=== PATIENT | male | born 1945 | race Caucasian/White ===

== ENCOUNTER → 2016-08-22 | Outpatient (CLI) | payer MEDICARE ==
[~2016-08-22] MED LIST: REGADENOSON 0.4 MG/5 ML SYRINGE IV ONE
[2016-08-22 07:11] LABS: Blood Urea Nitrogen 12 mg/dL (9-20); Non-African American GFR(MDRD) >60 (>60 ml/min/1.73 sqM)
--- NOTE | 2016-08-22 08:31 | CT ---
EXAMINATION TYPE: CT angio abdomen DATE OF EXAM: 08/22/2016 7:39 AM COMPARISON: NONE HISTORY: AAA CT DLP: 1059 mGycm CONTRAST: CTA abdominal aorta with 3-D reconstruction is performed without and with IV Contrast, patient inject ed with 100 ml mL of Omnipaque 300. Contrast CTA of the abdominal aorta was performed from the lung bases through the base of the pelvis . 3-D reconstruction imaging obtained at a separate workstation. ABDOMENAL AORTA: There is an infrarenal abdominal aortic aneurysm with neck of approximately 1.3 cm. Maximal AP dimension is approximately 6.3 cm with extensive mural thrombus. Aneurysm extends into the right common iliac artery which measures 2.5 cm. The left common iliac artery is ectatic however non aneurysmal. No evidence for dissection or complicating factor. No evidence of rupture at this time. [place] vessels appear to perfuse normally. LIVER/GB- No significant abnormality is seen. Small cyst at the dome of the liver measuring less than 1 cm. PANCREAS- No significant abnormality is seen. SPLEEN- No significant abnormality is seen. ADRENALS- No significant abnormality is seen. KIDNEYS/BLADDER-5.1 cm simple cyst lower pole right kidney. BOWEL-sigmoid diverticulosis without diverticulitis. GENITAL ORGANS: No gross abnormality seen. LYMPH NODES- No greater than 1cm abdominal or pelvic lymph nodes areappreciated. OSSEOUS STRUCTURES- No significant abnormality is seen. OTHER- No significant abnormality is seen. IMPRESSION- 1. Infrarenal abdominal aortic aneurysm. Aneurysm of the right common iliac artery. No complicating f actors identified.
--- NOTE | 2016-08-22 10:51 | ECHOF ---
Referral Reason:AAA I71.4 MEASUREMENTS -------- HEIGHT: 162.6 cm WEIGHT: 60.8 kg BP: IVSd: 1.2 cm (0.6 - 1.1) LVIDd: 4.1 cm (3.9 - 5.3) LVPWd: 1.6 cm (0.6 - 1.1) IVSs: 2.0 cm LVIDs: 3.2 cm LVPWs: 1.7 cm Ao Diam: 3.7 cm (2.0 - 3.7) AV Cusp: 2.2 cm (1.5 - 2.6) LA Diam: 2.7 cm (2.7 - 3.8) MV EXCURSION: 13.189 mm (> 18.000) MV EF SLOPE: 38 mm/s (70 - 150) EPSS: 1.4 cm MV E Armando: 1.21 m/s MV DecT: 128 ms MV A Armando: 0.43 m/s MV E/A Ratio: 2.81 RAP: 5.00 mmHg RVSP: 16.32 mmHg FINDINGS -------- Sinus rhythm. This was a technically good study. There is moderate concentric left ventricular hypertrophy. Overall left ventricular systolic function is low-normal with, an EF between 50 - 55 %. Mid to basal inferiorlateral is hypokinetic The right ventricle is normal in size and function. The left atrium is normal in size. The right atrium is normal in size. Aortic valve is trileaflet and is mildly thickened. The mitral valve leaflets are mildly thickened. Mild mitral regurgitation is present. Mild tricuspid regurgitation present. The right ventricular systolic pressure, as measured by Doppler, is 16.32mmHg. The pulmonic valve is normal. The aortic root size is normal. The pericardium is normal. CONCLUSIONS -------- 1. Sinus rhythm. 2. The mitral valve leaflets are mildly thickened. 3. Mild mitral regurgitation is present. 4. Mild tricuspid regurgitation present. 5. The right ventricular systolic pressure, as measured by Doppler, is 16.32mmHg. 6. The pulmonic valve is normal. 7. The aortic root size is normal. 8. The pericardium is normal. 9. This was a technically good study. 10. There is moderate concentric left ventricular hypertrophy. 11. Overall left ventricular systolic function is low-normal with, an EF between 50 - 55 %. 12. Mid to basal inferiorlateral is hypokinetic 13. The right ventricle is normal in size and function. 14. The left atrium is normal in size. 15. The right atrium is normal in size. 16. Aortic valve is trileaflet and is mildly thickened. PREDATORY ANIMAL TRAPPER: Dominique Alvarez RDCS
--- NOTE | 2016-08-22 12:04 | EST ---
DATE OF SERVICE: 08/22/16. AGE: 71Y SEX: M HT: 5'4" WT: 134 lbs. Protocol Chetan: Other: X Stage: Dur. of Exercise: *Heart Rate Blood Pressure *Rest: 71 Rest: 134/66 * *Max. Achieved: 103 Maximum BP: 153/68 85% PMHR: 100% PMHR: *METS: INDICATIONS: Shortness of breath. MEDICATIONS: Mr. casillas is a 71-year-old gentleman with history of diabetes, hypercholesterolemia and COPD, being evaluated for symptoms of shortness of breath. Stress data: Baseline EKG showed sinus rhythm with evidence of incomplete right bundle branch block pattern. A standard dose of Lexiscan was infused. EKGs did not reveal any significant changes from the baseline. FINAL IMPRESSION: 1. Negative Lexiscan stress test. 2. Report on the nuclear images to be given by the radiologist.
--- NOTE | 2016-08-22 14:06 | NM ---
EXAMINATION TYPE: NM stress lexiscan cardiolite DATE OF EXAM: 08/22/2016 11:13 AM COMPARISON: NONE HISTORY: 71-year-old male AAA TECHNIQUE: After the intravenous administration of 11 mCi Tc 99m Sestamibi - Cardiolite resting SPEC T images acquired 45 minutes post injection. The patient received 0.4mg Lexiscan, 27.5 mCi Tc 99m Sestamibi - Stress images obtained [address] injection FINDINGS: Review of stress and rest SPECT images demonstrates large fixed perfusion defect along the inferior w all. However, there is prominent adjacent GI activity and some of the perfusion defect appears larger on the rest images. Gated analysis shows no perfusion or augmentation along the inferior wall. Estim ated left ventricular ejection fraction of 64 %. TID is calculated at 0.97, within normal limits. IMPRESSION: 1. There appears to be a large fixed perfusion defect along the inferior wall. Correlate for history of prior inferior wall infarct. 2. No areas of reversible ischemia seen.
== END | disposition home or self-care (01) ==
LOC: RADCTMAIN 06:30
PROVIDERS: ATTEND Thoracic Surgery (Cardiothoracic Vascular Surgery)
DX: I71.4 Abdominal aortic aneurysm, without rupture (principal); I72.3 Aneurysm of iliac artery
CPT/HCPCS: 93017; 93306; 82565; 84520; 74175; 36415; 78452; A9500; Q9967; J2785

== ENCOUNTER 2016-10-19 15:58 | Emergency (ER) | payer MEDICARE ==
--- NOTE | 2016-10-19 16:34 | ED ---
General Adult HPI - General Chief complaint: Recheck/Abnormal Lab/Rx Stated complaint: SOB-Post Op/Incision Leaking Time Seen by Provider: 10/19/16 16:05 Source: patient, RN notes reviewed Mode of arrival: ambulatory Limitations: no limitations - History of Present Illness Initial comments: This is a 71-year-old male who recently had abdominal aortic aneurysm repair he was discharged from [facility] yesterday. According to the patient he comes in today because he is having decreased urine output as well as a lot of swelling to the legs and seepage from the groin incision. Patient denies any fever chills patient denies any increase in abdominal pain other than the normal incisional pain. Patient denies any headache patient denies numbness weakness per patient denies chest pain difficulty breathing or shortness of breath per patient denies any fever chills. Patient denies any dysuria. - Related Data Home Medications Medication Instructions Recorded Confirmed ALPRAZolam [Xanax] 0.25 mg PO BID PRN 10/19/16 10/19/16 Aspirin EC [Ecotrin Low Dose] 81 mg PO DAILY 10/19/16 10/19/16 Cholecalciferol [Vitamin D3] 1,000 unit PO DAILY 10/19/16 10/19/16 Cyanocobalamin [Vitamin B-12] 500 mcg PO DAILY 10/19/16 10/19/16 HYDROcodone/APAP 5-325MG [Porter 1 tab PO Q4HR PRN 10/19/16 10/19/16 5-325] Lovastatin [Mevacor] 40 mg PO DAILY 10/19/16 10/19/16 Omeprazole [PriLOSEC] 20 mg PO DAILY 10/19/16 10/19/16 metFORMIN HCL [Glucophage] 500 mg PO BID 10/19/16 10/19/16 Previous Rx's Medication Instructions Recorded Furosemide [Lasix] 20 mg PO BID #10 tab 10/19/16 Potassium Chloride ER [K-Dur 20] 20 meq PO DAILY #12 tab 10/19/16 Allergies Allergy/AdvReac Type Severity Reaction Status Date / Time No Known Allergies Allergy Verified 10/19/16 16:37 Review of Systems ROS Statement: Those systems with pertinent positive or pertinent negative responses have been documented in the HPI. ROS Other: All systems not noted in ROS Statement are negative. Past Medical History Past Medical History: Deep Vein Thrombosis (DVT) History of Any Multi-Drug Resistant Organisms: None Reported Additional Past Surgical History / Comment(s): blood clot removal Past Psychological History: No Psychological Hx Reported Smoking Status: Former smoker Past Alcohol Use History: None Reported Past Drug Use History: None Reported General Exam - General Exam Comments Initial Comments: GENERAL: Patient is well-developed and well-nourished. Patient is nontoxic and well- hydrated and is in mild distress. ENT: Neck is soft and supple. No significant lymphadenopathy is noted. Oropharynx is clear. Moist mucous membranes. Neck has full range of motion without eliciting any pain. EYES: The sclera were anicteric and conjunctiva were pink and moist. Extraocular movements were intact and pupils were equal round and reactive to light. Eyelids were unremarkable. PULMONARY: Unlabored respirations. Good breath sounds bilaterally. No audible rales rhonchi or wheezing was noted. CARDIOVASCULAR: There is a regular rate and rhythm without any murmurs gallops or rubs. ABDOMEN: Soft and nontender with normal bowel sounds. Patient has a large incision on the abdomen that appears to be healing well no signs of infection SKIN: Abdominal incision in right groin incision neither incision looks infected. NEUROLOGIC: Patient is alert and oriented x3. Cranial nerves II through XII are grossly intact. Motor and sensory are also intact. Normal speech, volume and content. Symmetrical smile. MUSCULOSKELETAL: Normal extremities with adequate strength and full range of motion. 2+ edema bilaterally patient has good cap refills bilaterally LYMPHATICS: No significant lymphadenopathy is noted PSYCHIATRIC: Normal psychiatric evaluation. Limitations: no limitations Course Vital Signs 10/19/16 10/19/16 10/19/16 16:02 17:47 18:06 Temperature 97.8 F 97.9 F Pulse Rate 84 80 79 Respiratory 20 18 20 Rate Blood Pressure 140/68 102/52 126/63 O2 Sat by Pulse 98 94 L 93 L Oximetry 10/19/16 18:08 Temperature Pulse Rate 80 Respiratory 20 Rate Blood Pressure 126/62 O2 Sat by Pulse 94 L Oximetry Medical Decision Making - Medical Decision Making Chest x-ray shows small pleural effusions I spoke with the vascular surgeon he wanted the patient started on Lasix and potassium and will follow-up the patient on Monday. - Lab Data Result diagrams: 10/19/16 16:55 10/19/16 16:55 Lab Results 10/19/16 10/19/16 10/19/16 Range/Units 16:55 16:55 16:55 WBC 5.6 (3.8-10.6) k/uL RBC 2.94 L (4.30-5.90) m/uL Hgb 9.1 L (13.0-17.5) gm/dL Hct 26.6 L (39.0-53.0) % MCV 90.7 (80.0-100.0) fL MCH 30.9 (25.0-35.0) pg MCHC 34.1 (31.0-37.0) g/dL RDW 14.4 (11.5-15.5) % Plt Count 288 (150-450) k/uL Neutrophils % 71 % Lymphocytes % 16 % Monocytes % 5 % Eosinophils % 5 % Basophils % 0 % Neutrophils # 4.0 (1.3-7.7) k/uL Lymphocytes # 0.9 L (1.0-4.8) k/uL Monocytes # 0.3 (0-1.0) k/uL Eosinophils # 0.3 (0-0.7) k/uL Basophils # 0.0 (0-0.2) k/uL Sodium 141 (137-145) mmol/L Potassium 3.2 L (3.5-5.1) mmol/L Chloride 107 (98-107) mmol/L Carbon Dioxide 25 (22-30) mmol/L Anion Gap 9 mmol/L BUN 10 (9-20) mg/dL Creatinine 0.73 (0.66-1.25) mg/dL Est GFR (MDRD) Af Amer >60 (>60 ml/min/1.73 sqM) Est GFR (MDRD) Non-Af >60 (>60 ml/min/1.73 sqM) Glucose 154 H (74-99) mg/dL Calcium 8.0 L (8.4-10.2) mg/dL Total Bilirubin 0.7 (0.2-1.3) mg/dL AST 45 (17-59) U/L ALT 31 (21-72) U/L Alkaline Phosphatase 83 (38-126) U/L Total Protein 5.0 L (6.3-8.2) g/dL Albumin 2.6 L (3.5-5.0) g/dL Urine Color Yellow Urine Appearance Clear (Clear) Urine pH 7.0 (5.0-8.0) Ur Specific [place] 1.016 (1.001-1.035) Urine Protein 1+ H (Negative) Urine Glucose (UA) Negative (Negative) Urine Ketones Negative (Negative) Urine Blood Negative (Negative) Urine Nitrite Negative (Negative) Urine Bilirubin Negative (Negative) Urine Urobilinogen 3.0 (<2.0) mg/dL Ur Leukocyte Esterase Negative (Negative) Urine RBC 1 (0-5) /hpf Urine WBC 2 (0-5) /hpf Ur Squamous Epith Cells <1 (0-4) /hpf Urine Mucus Rare H (None) /hpf Disposition Clinical Impression: Postoperative edema Disposition: HOME SELF-CARE Condition: Good Instructions: Leg Edema (ED) Additional Instructions: Patient needs to follow-up with the surgeon on Monday Prescriptions: Furosemide [Lasix] 20 mg PO BID #10 tab Potassium Chloride ER [K-Dur 20] 20 meq PO DAILY #12 tab Referrals: Ashvin Carlton DO [Primary Care Provider] - 1-2 days Time of Disposition: 18:11
--- NOTE | 2016-10-19 17:15 | XR ---
EXAMINATION TYPE: XR chest 2V DATE OF EXAM: 10/19/2016 5:10 PM COMPARISON: Chest x-ray August 22, 2016. HISTORY: Shortness of breath. TECHNIQUE: Frontal and lateral views of the chest are obtained. FINDINGS: There is no new focal air space opacity or pneumothorax seen. New small bilateral pleural effusions are noted seen best on lateral view The cardiac silhouette size is more prominent but uppe r limits of normal. The osseous structures are intact. IMPRESSION: New small bilateral pleural effusions, consider fluid overload state.
[2016-10-19 17:19] LABS: Basophils % (A) 0 %; CH 30.3; CHCM 33.6; Eosinophils # (A) 0.3 k/uL (0-0.7); Eosinophils % (A) 5 %; HCT 26.6 % (39.0-53.0); HGB 9.1 gm/dL (13.0-17.5); Luc # (Auto) 0.14; Luc % (Auto) 3; Lymphocytes # (A) 0.9 k/uL (1.0-4.8); Lymphocytes % (A) 16 %; MCH 30.9 pg (25.0-35.0); MCHC 34.1 g/dL (31.0-37.0); MCV 90.7 fL (80.0-100.0); Mean Platelet Volume 6.7; Monocytes # (A) 0.3 k/uL (0-1.0); Monocytes % (A) 5 %; Neutrophils % (A) 71 %; RBC 2.94 m/uL (4.30-5.90); RDW 14.4 % (11.5-15.5); WBC 5.6 k/uL (3.8-10.6)
[2016-10-19 17:28] LABS: Appearance,Urine Clear (Clear); Bilirubin,Urine Negative (Negative); Glucose,Urine (UA) Negative (Negative); Ketones,Urine Negative (Negative); Leukocyte Esterase,Urine Negative (Negative); Mucus,Urine Rare /hpf; Nitrite,Urine Negative (Negative); Particle Count 1311; Protein,Urine 1+ (Negative); RBC,Urine 1 /hpf (0-5); Specific Gravity,Urine 1.016 (1.001-1.035); Squamous Epithelial Cell,Urine <1 /hpf (0-4); UA Billing (MACRO vs. MICRO) MICRO; WBC,Urine 2 /hpf (0-5)
[2016-10-19 17:30] LABS: ALT 31 U/L (21-72); AST 45 U/L (17-59); Alkaline Phosphatase 83 U/L (38-126); Anion Gap 9 mmol/L; Blood Urea Nitrogen 10 mg/dL (9-20); Carbon Dioxide 25 mmol/L (22-30); Chloride 107 mmol/L (98-107); Glucose 154 mg/dL (74-99); Non-African American GFR(MDRD) >60 (>60 ml/min/1.73 sqM); Potassium 3.2 mmol/L (3.5-5.1); Sodium 141 mmol/L (137-145); Total Bilirubin 0.7 mg/dL (0.2-1.3)
[2016-10-19] MEDS ORDERED: FUROSEMIDE 10 MG/ML 2 ML VIAL IV ONE (17:50)
[2016-10-19] MEDS ORDERED: POTASSIUM CHLORIDE ER 20 MEQ TAB.ER PO STA (18:05)
[2016-10-19 18:07] VITALS: RESP 20; TEMP 97.9
[2016-10-19 18:14] VITALS: BP 134/75; PULSE 86
== END 2016-10-19 18:31 | disposition home or self-care (01) ==
LOC: EC 15:58
DX: K91.89 Other postprocedural complications and disorders of digestive system (principal); R60.9 Edema, unspecified; J90 Pleural effusion, not elsewhere classified; Z86.718 Personal history of other venous thrombosis and embolism; Z87.891 Personal history of nicotine dependence; Z79.899 Other long term (current) drug therapy; Z79.84 Long term (current) use of oral hypoglycemic drugs; Y83.8 Other surgical procedures as the cause of abnormal reaction of the patient, or of later complication, without mention of misadventure at the time of the procedure
CPT/HCPCS: 99283; 96374; 36415; 80053; 85025; 81001; 71020; J1940